=== PATIENT | female | born 1985 | race Caucasian/White ===

== ENCOUNTER 2018-08-07 09:00 | Inpatient (IN) | payer BC ==
[2018-08-07 09:39] LABS: APPEARANCE,URINE SLIGHTLY-CLOUDY; BILIRUBIN,URINE NEGATIVE (NEGATIVE); COLOR,URINE YELLOW; GLUCOSE, URINE NEGATIVE (NEGATIVE); KETONES,URINE NEGATIVE (NEGATIVE); LEUKOCYTE ESTERASE,URINE TRACE (NEGATIVE); NITRITE,URINE NEGATIVE (NEGATIVE); PROTEIN,URINE NEGATIVE (NEGATIVE); UROBILINOGEN,URINE NEGATIVE mg/dL (<2.0)
[2018-08-07] MEDS ORDERED: RINGERS SOLUTION,LACTATED 1,000 ML IV ONE (09:46)
[2018-08-07] MEDS ORDERED: RINGERS SOLUTION,LACTATED 1,000 ML IV PRN (09:46)
[2018-08-07] MEDS ORDERED: MAG HYDROX/AL HYDROX/SIMETH SUSP 30 ML UDCUP ONE (10:02)
[2018-08-07 10:03] LABS: URINE AMPHETAMINES SCREEN NEGATIVE; URINE BARBITURATES SCREEN NEGATIVE; URINE BENZODIAZEPINES SCREEN NEGATIVE; URINE COCAINE SCREEN NEGATIVE; URINE MARIJUANA (THC) SCREEN NEGATIVE; URINE METHADONE SCREEN NEGATIVE; URINE PHENCYCLIDINE SCREEN NEGATIVE
[2018-08-07 10:23] LABS: ABSOLUTE LYMPHOCYTES (AUTO) 1.6 10^3/uL (0.5-4.7); ABSOLUTE MONOCYTES (AUTO) 0.5 10^3/uL (0.1-1.4); ABSOLUTE NEUT (AUTO) 8.6 10^3/uL (1.7-8.2); BASOPHILS % (AUTO) 0.3 % (0-2); EOSINOPHILS % (AUTO) 0.4 % (0-6); HEMATOCRIT 37.4 % (36.0-47.0); HEMOGLOBIN 12.8 g/dL (12.0-15.5); LYMPHOCYTES % (AUTO) 14.9 % (13-45); MEAN CORPUSCULAR HEMOGLOBIN 31.7 pg (27.0-33.4); MEAN CORPUSCULAR HGB CONC 34.3 g/dL (32.0-36.0); MEAN CORPUSCULAR VOLUME 92 fl (80-97); MONOCYTES % (AUTO) 4.7 % (3-13); PLATELET COUNT 261 10^3/uL (150-450); RED BLOOD COUNT 4.05 10^6/uL (3.72-5.28); SEGMENTED NEUTROPHILS % (AUTO) 79.7 % (42-78); TOTAL CELLS COUNTED % (AUTO) 100 %; WHITE BLOOD COUNT 10.8 10^3/uL (4.0-10.5)
--- NOTE | 2018-08-07 10:35 | Admission Physical ---
Datetime Report Generated by CPN: 08/07/2018 10:34 CURRENT ADMISSION Chief Complaint: Uterine Contractions; Suspected Ruptured Membranes Admit Impression : Term, Intrauterine ; Ruptured Membranes Admit Plan: Admit to Unit; Initiate Labor Augmentation Protocol ALLERGIES Medication Allergies: No Medication Allergies: No Known Allergies (08/07/2018) Latex: No Latex Allergies OBSTETRICAL HISTORY EDC: 08/23/2018 00:00 : 4 Para: 3 Term: 3 Livin Cesareans: 0 Gestational Diabetes: No Rh Sensitization: No Incompetent Cervix: No CAREY: No Infertility: No ART Treatment: Yes Uterine Anomaly: No IUGR: No Hx Previous C/S: No Macrosomia: No Hx Loss/Stillborn: No PIH: No Hx : No Placenta Previa/Abruption: No Depression/PP Depression: No PTL/PROM: No Post Hemorrhage: No Current Procedures: Ultrasound Obstetrical History Comments: shoulder dystocia 8#1oz - 2007 shoulder dystocia 9#15 oz G3-2010 shoulder dystocia 9#4 oz G4- current, surrogate parents in [place], pt desires vaginal delivery SEE RECORDS Alcohol: No Marijuana : No Cocaine: No Other Illicit Drugs: No Cigarettes: Never Smoker. [id number] MEDICAL HISTORY Diabetes: No Blood Transfusion: No Pulmonary Disease (Asthma, TB): No Breast Disease: No Hypertension: No Sexual Assault Counsellor Surgery: No Heart Disease: No Hosp/Surgery: Yes Autoimmune Disorder: No Anesthetic Complications: No Kidney Disease: No Abnormal Pap Smear: No Neuro/Epilepsy: No Psychiatric Disorders: No Other Medical Diseases: No Hepatitis/Liver Disease: No Significant Family History: No Varicosities/Phlebitis: No Trauma/Violence : No Thyroid Dysfunction: No Medical History Comments: childbirthx3, [id number], cyst removal 2005, tubal- 2010, IVF this INFECTIOUS HISTORY Gonorrhea: No Genital Herpes: Yes Chlamydia: No Tuberculosis: No Syphilis: No Hepatitis: No HIV/AIDS Exposure: No Rash or Viral Illness: No HPV: No Infectious History Comments: herpes- not on valtrex yet last breakout 10 years ago per pt PHYSICAL EXAM General: Normal HEENT: Normal Neurologic: Normal Thyroid: Normal Heart: Normal Lungs: Normal Breast: Normal Back: Normal Abdomen: Normal Genitourinary Exam: Normal Extremities: Normal DTRs: Normal Pelvic Type: Adequate Vital Signs: Reviewed MEMBRANES Membranes: Ruptured Amniotic Fluid Color: Clear FETUS A EGA: 37.5 Monitoring: External US FHR- Baseline: 135 Variability: Moderate 6-25bpm Accelerations: 15X15 Decelerations: None FHR Category: Category I Admit Comment: presents at 37.5 wks with c/o leaking amniotic fluid at 0600 this morning. Pt is a surrogate for this . GBS negative. Pt has hx of shoulder dystocia and hx of HSV outbreak 10 years ago. Not taking Valtrex currently, but denies S_S of any recent outbreaks. Pt desires to attempt to have a since she is 37 wks and feels like this non-biological baby is smaller then her own children. EFW via leapolds is 7 lb. Vtx via spot check ultrasound. On external exam of her vagina, no lesions are present. Dr Nguyễn aware of pts status and agrees w/ plan of care PLANS FOR LABOR AND DELIVERY Labor and Delivery: Other, Specify Pain Management: Epidural Feeding Preference: Formula Benefit of Breast Feed Discussed: Yes Circumcision: N/A INFORMED CONSENT Assignment: Mary Nguyễn MD Signature: with User ID: Jerrod : with User ID: [email or web address]
[2018-08-07] MEDS ORDERED: MISOPROSTOL 0.1 MG TABLET ONE (10:44)
[2018-08-07] MEDS ORDERED: MISOPROSTOL 0.1 MG TABLET PO ONE (10:46)
[2018-08-07] MEDS ORDERED: MISOPROSTOL 0.1 MG TABLET PV ONE (10:46)
[2018-08-07] MEDS ORDERED: PHENYLEPHRINE HCL INJ/PF 10 MG/1 ML SDV ONE (14:18)
[2018-08-07] MEDS ORDERED: FENTANYL CITRATE INJ/PF 100 MCG/2 ML AMPUL ONE (14:18)
[2018-08-07] MEDS ORDERED: EPHEDRINE SULFATE INJ 50 MG/1 ML AMPULE ONE (14:18)
[2018-08-07] MEDS ORDERED: MISOPROSTOL 0.2 MG TABLET ONE (14:18)
[2018-08-07] MEDS ORDERED: LIDOCAINE 1% INJ-PF (10 MG/ML) 30 ML SDV ONE (14:19)
[2018-08-07] MEDS ORDERED: OXYTOCIN/NORMAL SALINE 20 UNIT/1,000 ML RTUINJ ONE (14:19)
[2018-08-07] MEDS ORDERED: FENTANYL/BUPIVACAINE/NS/PF 300 MCG/150 ML RTUINJ EPI ONE (14:19)
[2018-08-07] MEDS ORDERED: BUPIVACAINE HCL 0.25 % INJ/PF (2.5 MG/1 ML) 30 ML VIAL ONE (14:19)
[2018-08-07] MEDS ORDERED: LIDOCAINE 1.5%/EPINEPHRINE INJ 5 ML AMP ONE (14:19)
[2018-08-07] MEDS ORDERED: DIBUCAINE 1% OINTMENT 56 GM TP PRN (15:53)
[2018-08-07] MEDS ORDERED: BENZOCAINE/MENTHOL AEROSOL SPRAY 56 ML TOP PRN (15:53)
[2018-08-07] MEDS ORDERED: DIPH/PERTUSS(ACELL)/TETANUS VAC/PF 0.5 ML SYR (>=10YO) IM PRN (15:53)
[2018-08-07] MEDS ORDERED: ACETAMINOPHEN WITH CODEINE #3 TABLET PO PRN (15:53)
[2018-08-07] MEDS ORDERED: MEASLES,MUMPS&RUBELLA VACC/PF 0.5 ML VIAL SUBCUT PRN (15:53)
[2018-08-07] MEDS ORDERED: OXYTOCIN/NORMAL SALINE 20 UNIT/1,000 ML RTUINJ IV PRN ×2 (15:53→16:20)
[2018-08-07] MEDS ORDERED: ZOLPIDEM TARTRATE 5 MG TABLET PO PRN (15:53)
[2018-08-07] MEDS ORDERED: IBUPROFEN 800 MG TABLET ONE (18:07)
[2018-08-07] MEDS ORDERED: DOCUSATE SODIUM 100 MG CAPSULE ONE (18:07)
[2018-08-07] MEDS ORDERED: FERROUS SULFATE 325 MG TABLET PO ONE (18:08)
[2018-08-07] MEDS: DOCUSATE SODIUM 100 MG CAPSULE PO SCH (18:10)
[2018-08-07] MEDS: IBUPROFEN 800 MG TABLET PO SCH ×2 (18:10→22:45)
[2018-08-07] MEDS: FERROUS SULFATE 325 MG TABLET PO SCH (18:10)
--- NOTE | 2018-08-07 19:31 | Delivery Summary ---
Del Sum A-C Datetime Report Generated by CPN: 08/07/2018 19:31 DELIVERY PERSONNEL DELIVERY PERSONNEL: [id number] Delivery Doctor:: Mary Nguyễn MD Labor and Delivery Nurse:: Ally Simpson RNrubble placer Nurse:: WALLY Buckner Supervisor Lead Refinery/RETURNED CASE INSPECTOR: Candi Gonzalez, Additional Personnel: : Ludwin Cedillo RN MATERNAL INFORMATION Delivery Anesthesia: Epidural Medications After Delivery: Pitocin Bolus-Please Comment Meds After Delivery Comment: Pitocin 20 units in 1 L NS bolusing per order Estimated Blood Loss (ml): 300 Maternal Complications: None LABOR SUMMARY EDC: 08/23/2018 00:00 No. Babies in Womb: 1 Attempted: No Labor Anesthesia: Epidural LABOR INFORMATION Reason for Induction: Premature Rupture of Membranes Onset of Labor: 08/07/2018 14:00 Complete Dilatation: 08/07/2018 17:10 Cervical Ripening Agents: Cytotec @ Oxytocin: Induction Group B Beta Strep: negative Antibiotics # of Doses: 0 Steroids Given: None Reason Steroids Not Administered: Not Applicable MEMBRANES Membranes Rupture Method: Spontaneous Rupture of Membranes: 08/07/2018 06:00 Length of Rupture (hr): 11.30 Amniotic Fluid Color: Clear Amniotic Fluid Amount: Moderate Amniotic Fluid Odor: Normal STAGES OF LABOR Stage 1 hr: 3 Stage 1 min: 10 Stage 2 hr: 0 Stage 2 min: 8 Stage 3 hr: 0 Stage 3 min: 3 Total Time in Labor hr: 3 Total Time in Labor min: 21 VAGINAL DELIVERY Episiotomy: None Laceration #1: None Laceration Extension #1: N/A Laceration Repair: Not Applicable Sponge Count Correct: N/A Sharps Count Correct: N/A CSECTION DELIVERY Primary Indication: N/A Secondary Indication: N/A CSection Incidence: N/A Labor: N/A Elective: N/A CSection Incision: N/A BABY A INFORMATION Delivery Date/Time: 08/07/2018 17:18 Method of Delivery: Vaginal Born in Route : No : N/A Forceps: N/A Vacuum Extraction: N/A Shoulder Dystocia : No PRESENTATION/POSITION BABY A Presentation: Cephalic Cephalic Presentation: Vertex Vertex Position: Right Occipital Anterior (Annotations: Data stored by [facility] on behalf of user) Breech Presentation: N/A PLACENTA INFORMATION BABY A Placenta Delivery Time : 08/07/2018 17:21 Placenta Method of Delivery: Spontaneous Placenta Status: Delivered SCORES BABY A Heart Rate 1 min: >100 bpm Resp Effort 1 min: Good Cry Reflex Irritability 1 min: Cough or Sneeze or Pulls Away Muscle Tone 1 min: Active Motion Color 1 min: Body [place], Extremities Blue Resuscitation Effort 1 min: Tactile Stimulation SCORE 1 MIN: 9 Heart Rate 5 min: >100 bpm Resp Effort 5 min: Good Cry Reflex Irritability 5 min: Cough or Sneeze or Pulls Away Muscle Tone 5 min: Active Motion Color 5 min: Body [place], Extremities Blue Resuscitation Effort 5 min: N/A SCORE 5 MIN: 9 Resuscitation Effort 10 min: N/A INFORMATION BABY A Gestational Age at Delivery: 37.5 Gestational Status: Early Term- 37- 38.6 Weeks Infant Outcome : Liveborn Condition : Stable Sex: Male IDENTIFICATION BABY A Infant Verification Date/Time: 08/07/2018 17:41 ID Band Number: [id number] Mother's Name Verified: Yes Infant RN Verifying : Harriet Camp RNC Additional Verifying Personnel: Ally Simpson RN WEIGHT/LENGTH BABY A Birthweight (gm): 3247 Weight (lb): 7 Infant Weight (oz): 3 Infant Length (in): 19.25 Infant Length (cm): 48.90 CORD INFORMATION BABY A No. Cord Vessels: 3 Nuchal Cord : N/A Cord Blood Taken: Yes-For Storage (Mom's Blood type +) Infant Suction: None ASSESSMENT BABY A Infant Complications: None Physical Findings at Delivery: Within Normal Limits Respirations: Appears Normal Skin to Skin: Yes Skin to Skin Time (min): 60 Infant Care By: T Mamadou RN Transferred To: Remains with Mother BABY B INFORMATION : N/A SIGNATURES Signature: with User ID: [email or web address]
--- NOTE | 2018-08-07 19:42 | Warning Signs in Babies ---
VOD Warning Signs Datetime Report Generated by [facility]: 08/07/2018 19:42 VOD#[id number] -Warning Signs in Babies: Viewed with Parent(s)/Family (08/07/2018 19:42:Chyna Gaming RN)
[2018-08-08] MEDS: IBUPROFEN 800 MG TABLET PO SCH (05:51)
[2018-08-08 06:54] LABS: HEMATOCRIT 31.4 % (36.0-47.0); MEAN CORPUSCULAR HEMOGLOBIN 31.5 pg (27.0-33.4); MEAN CORPUSCULAR HGB CONC 33.5 g/dL (32.0-36.0); MEAN CORPUSCULAR VOLUME 94 fl (80-97); PLATELET COUNT 228 10^3/uL (150-450); RED BLOOD COUNT 3.35 10^6/uL (3.72-5.28); RED CELL DISTRIBUTION WIDTH 12.9 % (11.5-14.0); WHITE BLOOD COUNT 11.3 10^3/uL (4.0-10.5)
[2018-08-08 06:55] LABS: HEMOGLOBIN 10.5 g/dL (12.0-15.5)
[2018-08-08 08:14] VITALS: BP 117/82
[2018-08-08] MEDS ORDERED: PRENATAL VITAMIN W DHA CAPSULE PO SCH (10:00)
[2018-08-08] MEDS ORDERED: SENNOSIDES/DOCUSATE 8.6-50 MG 1 EACH TABLET PO SCH (10:00)
[2018-08-08] MEDS: FERROUS SULFATE 325 MG TABLET PO SCH (12:25)
[2018-08-08] MEDS: DOCUSATE SODIUM 100 MG CAPSULE PO SCH (12:25)
--- NOTE | 2018-08-08 14:23 | PDOC DISCHARGE SUMMARY ---
Final Diagnosis Discharge Date: 08/08/18 - desires early discharge - Final Diagnosis (1) Surrogate Is this a current diagnosis for this admission?: Yes (2) Vaginal delivery Is this a current diagnosis for this admission?: Yes (3) Spontaneous rupture of membranes Is this a current diagnosis for this admission?: Yes (4) Anemia, Is this a current diagnosis for this admission?: Yes Discharge Data - Discharge Medication Prescriptions: Ibuprofen [Motrin 800 mg Tablet] 800 mg PO Q8HP PRN #20 tablet PRN Reason: Abdominal Cramping Docusate Sodium [Colace 100 mg Capsule] 100 mg PO BID #60 capsule Ferrous Sulfate [Feosol 325 mg Tablet] 325 mg PO BID #60 tablet Home Medications: Vits96/Iron Fum/Folic [ Tablet] 1 each PO DAILY 08/07/18 Docusate Sodium [Colace 100 mg Capsule] 100 mg PO BID #60 capsule 08/08/18 Ferrous Sulfate [Feosol 325 mg Tablet] 325 mg PO BID #60 tablet 08/08/18 Ibuprofen [Motrin 800 mg Tablet] 800 mg PO Q8HP PRN #20 tablet 08/08/18 Reason(s) for Admission: Onset of Labor Procedures: Ultrasound Intrapartum Procedure(s): Spontaneous Vaginal Delivery - Diagnosis Test Laboratory: Temp Pulse Resp BP Pulse Ox 98.3 F 81 16 117/82 100 08/08/18 08:06 08/08/18 08:06 08/08/18 08:06 08/08/18 08:06 08/08/18 08:06 08/07/18 08/07/18 08/08/18 09:12 10:00 06:17 RBC 4.05 3.35 L Hgb 12.8 10.5 L D Hct 37.4 31.4 L Urine Opiates Screen NEGATIVE - Discharge information/Instructions Discharge Activity: Activity As Tolerated, Balance Activity w/Rest, No Lifting Over 10 Pounds, Pelvic Rest, No tub bath, Walk Frequently Discharge Diet: As Tolerated, Regular Disposition: HOME, SELF-CARE Follow [facility]: [facility]: 4, Weeks
== END 2018-08-08 14:56 | disposition home or self-care (01) | DRG 807 ==
LOC: LC 09:00 → LR 09:46 → 2S 20:20
PROVIDERS: ADMIT Obstetrics & Gynecology; ATTEND Obstetrics & Gynecology
PROC: 10E0XZZ Delivery of Products of Conception, External Approach (ICD-10-PCS; principal; 2018-08-07)
PROC: 3E033VJ Introduction of Other Hormone into Peripheral Vein, Percutaneous Approach (ICD-10-PCS; 2018-08-07)
PROC: 4A1HXCZ Monitoring of Products of Conception, Cardiac Rate, External Approach (ICD-10-PCS; 2018-08-07)
DX: O90.81 Anemia of the puerperium (principal); Z37.0 Single live birth; D64.9 Anemia, unspecified; Z3A.37 37 weeks gestation of pregnancy
CPT/HCPCS: 36415; 80307; 81005; 84112; 85025; 85027; 86592; 86850; 86900; 86901; J2370; J2590; J3010; J3490